=== PATIENT | female | born 1960 | race African-American/Black ===

== ENCOUNTER 2017-09-05 15:55 | Emergency (ER) | payer OTHER ==
[2017-09-05 16:11] VITALS: BMI 30.4
--- NOTE | 2017-09-05 17:22 | PDOC ---
Attending Attestation - Resident Resident Name: Cecilio Gordon - ED Attending Attestation I have performed the following: I have examined & evaluated the patient, The case was reviewed & discussed with the resident, I agree w/resident's findings & plan, Exceptions are as noted - Medical Decision Making Pt noted to have intermittent loose cough with coarse crackles noted on exam. Will treat for bronchitis. Will give transfusion for symptomatic anemia. CXR from [facility] reviewed (from the disk), no focal consolidation. <Viktoria Shirley - Last Filed: 09/05/17 19:25> - HPI HPI: 09/05/17 18:33 The patient is a 56 year old female, with a significant past medical history of anemia, multiple myeloma, and low blood pressure, who presents to the emergency department with worsening dyspnea on exertion with associated fatigue for the past 3 days. The patient reports a history of anemia, requiring blood transfusions in the past. She reports she feels paler than usual, and her current symptoms are similar to her previous anemic episodes. She denies any associated headache, dizziness, lightheadedness, fever, or chills. She denies any chest pain, diaphoresis, or palpitations. She denies any abdominal pain, nausea, vomiting, diarrhea, or constipation. She denies any dysuria, hematuria, frequency, or urgency. Patient reports she is currently visiting [place]. Allergies: Vancomycin, [Tegaderm] Past Surgical History: None reported Social History: Non smoker. No ETOH or recreational drug use. - Physicial Exam PE: 09/05/17 18:33 GENERAL: Awake, alert, and fully oriented, in no acute distress HEAD: No signs of trauma EYES: Conjuntival pallor. PERRLA, EOMI, sclera anicteric, conjunctiva clear ENT: Auricles normal inspection, hearing grossly normal, nares patent, oropharynx clear without exudates. Moist mucosa NECK: Normal ROM, supple, no lymphadenopathy, JVD, or masses LUNGS: Diffuse coarse crackles bilaterally. No wheezes HEART: Regular rate and rhythm, normal S1 and S2, no murmurs, rubs or gallops ABDOMEN: Soft, nontender, normoactive bowel sounds. No guarding, no rebound. No masses EXTREMITIES: Normal range of motion, no edema. No clubbing or cyanosis. No cords, erythema, or tenderness NEUROLOGICAL: Cranial nerves II through XII grossly intact. Normal speech, normal gait SKIN: Warm, Dry, normal turgor, no rashes or lesions noted. - Medical Decision Making 09/05/17 18:33 Documentation prepared by Catrina Richardson, acting as medical auditor for Viktoria Shirley MD. <Catrina Richardson - Last Filed: 09/05/17 19:27>
--- NOTE | 2017-09-05 17:27 | PDOC ---
History of Present Illness - General Chief Complaint: Shortness of Breath Stated Complaint: SHORTNESS OF BREATH Time Seen by Provider: 09/05/17 17:21 - History of Present Illness Initial Comments: 09/05/17 17:46 The patient is a 56 year old female with a history of Multiple Myeloma, Anemia, Low BP who presents for evaluation of SOB and fatigue. The patient reports a 3 day history of worsening dyspnea on exertion and fatigue prompting her presentation to the ED for evaluation. She notes that she has a history of anemia requiring blood transfusions in the past and states that she feels she appears paler than usual and her current symptoms are similar to her prior episodes of anemia. She denies any fevers, chills, chest pain, abdominal pain, nausea, vomiting, or changes with urination or bowel movements. 09/05/17 18:36 Past History - Past Medical History Allergies/Adverse Reactions: Allergies Allergy/AdvReac Type Severity Reaction Status Date / Time vancomycin Allergy Itching Verified 09/05/17 16:11 TEGADERM Allergy Uncoded 09/05/17 16:11 Home Medications: Ambulatory Orders Carfilzomib [Kyprolis] 69 mg IV WEEKLY 09/05/17 Cholecalciferol (Vitamin D3) [Vitamin D3 -] 400 unit PO DAILY 09/05/17 Cyclophosphamide Injection [Cytoxan] 586 mg IV WEEKLY 09/05/17 Eltrombopag Olamine [Promacta] 50 mg PO DAILY 09/05/17 Lorazepam [Ativan] 1 mg PO DAILY PRN 09/05/17 Midodrine HCl 10 mg PO BID 09/05/17 Morphine *Sr* [Ms Contin -] 15 mg PO Q12H 09/05/17 Morphine *Sr* [Ms Contin -] 30 mg PO Q12H 09/05/17 Ondansetron HCl [Zofran] 8 mg PO Q8H PRN 09/05/17 Pregabalin [Lyrica -] 150 mg PO BID 09/05/17 Sulfamethoxazole/Trimethoprim [Bactrim Ds -] 1 tab PO DAILY 09/05/17 Valacyclovir HCl [Valtrex -] 500 mg PO BID 09/05/17 Azithromycin [Zithromax 250mg Tablets -] 250 mg PO UTDICT #6 tab 09/06/17 Anemia: Yes Cancer: Yes (MULTIPLE MYELOMA) COPD: No HTN: No (LOW BP) - Suicide/Smoking/Psychosocial Hx Smoking History: Never smoked Hx Alcohol Use: No Drug/Substance Use Hx: No Substance Use Type: None Review of Systems - Review of Systems Comments:: 09/05/17 17:50 Constitutional: Fatigue. No fevers, chills, malaise HEENT: No Rhinorrhea, nasal congestion, visual changes Cardiovascular: No chest pain, syncope, palpitations, lightheadedness Respiratory: SOB. No Hemoptysis, Gastrointestinal: No Abdominal pain, Nausea, Vomiting, Constipation, Diarrhea, Melena Genitourinary: No Dysuria, Frequency, Urgency, Hesitancy, Hematuria, Flank pain Musculoskeletal: No Myalgia, arthralgia Skin: No rashes, bruising, pallor Neurologic: No Headache, Dizziness, Numbness, Weakness, or Tingling Psychiatric: No Hallucinations. No SI or HI *Physical Exam - Vital Signs Last Vital Signs Temp Pulse Resp BP Pulse Ox 98.1 F 69 20 134/79 98 09/05/17 16:07 09/05/17 16:07 09/05/17 16:07 09/05/17 16:07 09/05/17 16:07 - Physical Exam Comments: 09/05/17 17:50 General Appearance: Nourished. No Apparent Distress HEENT: EOMI, JOLEEN. No Pharyngeal Erythema, Tonsillar Exudate, Tonsillar Erythema Neck: No Cervical Lymphadenopathy Respiratory/Chest: Diffuse bilateral crackles auscultated on exam. No Rhonchi , Wheezing Cardiovascular: Regular Rhythm, Regular Rate. No Murmur, Gallops, Rubs Gastrointestinal/Abdominal: Normal Bowel Sounds, Soft. No Guarding, Rebound, Tenderness Musculoskeletal: No CVA Tenderness Extremity: Normal Capillary Refill Integumentary: Normal Color, Dry, Warm Neurologic: Fully Oriented, Alert, Normal Mood/Affect, Normal Response, ED Treatment Course - LABORATORY CBC & Chemistry Diagram: 09/05/17 18:03 09/05/17 18:03 Medical Decision Making - Medical Decision Making 09/05/17 17:51 The patient is a 56 year old female with a history of Multiple Myloma, Anemia, Low BP who presents for evaluation of SOB and fatigue. Differential includes but is not limited to: Symptomatic anemia, acs, infections metabolic derangement. Given the patient's physical exam and history, it is possible her current symptoms are due to anemia. We will obtain a cbc, cmp, troponin, type and screen, coags, ekg to evaluate further. We will continue to monitor and reassess. 09/05/17 18:39 CBC demonstrated a hbg of 8.4 consistent with symptomatic anemia. The rest of the patient's abnormal cbc lab values including low wbc and platelet count is consist with the patient's baseline. Given the patient's symptomatic anemia, we will transfuse the patient with 2 units of blood and treat the patient with azithromycin given her physical exam and concern for a developing pneumonia. 09/05/17 19:00 Patient signed out to the night team pending transfusion and reassessment. *DC/Admit/Observation/Transfer Diagnosis at time of Disposition: Multiple myeloma Qualifiers: Multiple myeloma remission status: unspecified Qualified Code(s): C90.00 - Multiple myeloma not having achieved remission Anemia Qualifiers: Anemia type: unspecified type Qualified Code(s): D64.9 - Anemia, unspecified - Discharge Dispostion Disposition: HOME Condition at time of disposition: Stable - Prescriptions Prescriptions: Azithromycin [Zithromax 250mg Tablets -] 250 mg PO UTDICT #6 tab - Referrals - Patient Instructions Printed Discharge Instructions: Anemia Additional Instructions: Please return to the ER if you have any signs or symptoms of chest pain, shortness of breath, uncontrollable fever, chills, nausea, vomiting, numbness, tingling, or weakness in any part of your body, changes in vision, or slurred speech. Please return to the ER if symptoms persist, worsen, or new symptoms arise. Please follow up with your primary care physician in 2-3 days. - Post Discharge Activity
[2017-09-05 18:14] LABS: BASO % 0.5 % (0-2.0); EOS % 3.2 % (0-4.5); HEMATOCRIT 24.5 % (32.4-45.2); HEMOGLOBIN 8.4 GM/dL (10.7-15.3); MCH 36.6 pg (25.7-33.7); MCHC 34.4 g/dl (32.0-36.0); MEAN CELL VOLUME 106.3 fl (80-96); MEAN PLT VOLUME 9.7 fl (7.5-11.1); MONO % 8.6 % (3.8-10.2); NEUT % 71.7 % (42.8-82.8); PLATELET COUNT 42 K/MM3 (134-434); RDW 17.5 % (11.6-15.6); WHITE BLOOD COUNT 2.1 K/mm3 (4.0-10.0)
[2017-09-05 18:23] LABS: ADD RBC MORPHOLOGY YES
[2017-09-05] MEDS ORDERED: AZITHROMYCIN 500 MG TABLET PO ONE (18:36)
[2017-09-05 18:42] LABS: INR 1.02 (0.82-1.09); PROTHROMBIN TIME (PATIENT) 11.5 SEC (9.98-11.88)
[2017-09-05] MEDS ORDERED: AZITHROMYCIN 250 MG TABLET ONE (18:47)
[2017-09-05 18:59] LABS: ANISOCYTOSIS 2+; PLATELET ESTIMATE DECREASED
--- NOTE | 2017-09-05 19:25 | PDOC ---
*Physical Exam - Vital Signs Last Vital Signs Temp Pulse Resp BP Pulse Ox 98 F 76 18 116/65 98 09/05/17 21:18 09/05/17 21:18 09/05/17 21:18 09/05/17 21:18 09/05/17 21:18 <Viktoria Shirley - Last Filed: 09/05/17 22:17> - Vital Signs Last Vital Signs Temp Pulse Resp BP Pulse Ox 98.1 F 63 18 134/79 99 09/05/17 16:07 09/05/17 18:08 09/05/17 18:08 09/05/17 16:07 09/05/17 18:08 <Edwardo Lemus - Last Filed: 09/06/17 01:18> ED Treatment Course - LABORATORY CBC & Chemistry Diagram: 09/05/17 18:03 09/05/17 18:03 - ADDITIONAL ORDERS Additional order review: Laboratory Results 09/05/17 09/05/17 09/05/17 19:14 18:03 18:03 PT with INR INR PTT (Actin FS) Sodium 144 Potassium 3.9 Chloride 111 H Carbon Dioxide 25 Anion Gap 8 BUN 17 Creatinine 0.9 Creat Clearance w eGFR > 60 Random Glucose 123 H Calcium 8.3 L Ferritin 2340.320 H Total Bilirubin 0.5 AST 24 ALT 26 Alkaline Phosphatase 110 LD Total 311 H Creatine Kinase 37 Troponin I 0.02 Total Protein 5.8 L Albumin 3.6 Blood Type B NEGATIVE Antibody Screen Crossmatch See Detail 09/05/17 09/05/17 18:03 17:27 PT with INR 11.50 INR 1.02 PTT (Actin FS) 54.0 H Sodium Potassium Chloride Carbon Dioxide Anion Gap BUN Creatinine Creat Clearance w eGFR Random Glucose Calcium Ferritin Total Bilirubin AST ALT Alkaline Phosphatase LD Total Creatine Kinase Troponin I Total Protein Albumin Blood Type B NEGATIVE Antibody Screen Negative Crossmatch 09/05/17 18:03 RBC 2.30 L MCV 106.3 H MCHC 34.4 RDW 17.5 H MPV 9.7 Neutrophils % 71.7 Lymphocytes % 16.0 Monocytes % 8.6 Eosinophils % 3.2 Basophils % 0.5 - Medications Given in the ED: ED Medications Discontinued Medications Generic Name Dose Route Start Last Admin Trade Name Freq PRN Reason Stop Dose Admin Acetaminophen 650 mg 09/05/17 20:05 09/05/17 20:14 Tylenol - PO 09/05/17 20:06 650 mg ONCE ONE Administration Azithromycin 500 mg 09/05/17 18:36 09/05/17 18:47 Azithromycin PO 09/05/17 18:37 500 mg ONCE ONE Administration Diphenhydramine HCl 25 mg 09/05/17 20:05 09/05/17 20:15 Benadryl Injection - IVPB 09/05/17 20:06 Not Given ONCE ONE Diphenhydramine HCl 25 mg 09/05/17 20:06 09/05/17 20:15 Benadryl - PO 09/05/17 20:07 25 mg ONCE ONE Administration <Viktoria Shirley - Last Filed: 09/05/17 22:17> - LABORATORY CBC & Chemistry Diagram: 09/05/17 18:03 09/05/17 18:03 - ADDITIONAL ORDERS Additional order review: Laboratory Results 09/05/17 09/05/17 09/05/17 18:03 18:03 17:27 PT with INR 11.50 INR 1.02 PTT (Actin FS) 54.0 H Blood Type B NEGATIVE B NEGATIVE Antibody Screen Negative Crossmatch See Detail 09/05/17 18:03 RBC 2.30 L MCV 106.3 H MCHC 34.4 RDW 17.5 H MPV 9.7 Neutrophils % 71.7 Lymphocytes % 16.0 Monocytes % 8.6 Eosinophils % 3.2 Basophils % 0.5 - Medications Given in the ED: ED Medications Discontinued Medications Generic Name Dose Route Start Last Admin Trade Name Jagdishq PRN Reason Stop Dose Admin Azithromycin 500 mg 09/05/17 18:36 09/05/17 18:47 Azithromycin PO 09/05/17 18:37 500 mg ONCE ONE Administration <Edwardo Lemus - Last Filed: 09/06/17 01:18> Medical Decision Making - Medical Decision Making 09/05/17 22:17 Pt unable to stay for admission, she is currently visiting from [place] while arranging her mother's . She has no acute source of bleeding, has known history of multiple myeloma with prior similar symptoms. <Viktoria Shirley - Last Filed: 09/05/17 22:17> - Medical Decision Making 09/05/17 19:24 Pt was signed out to me by Dr. Gordon, day team. The patient is a 56F with a PMH of anemia and multiple myeloma who presents to the ED complaining of dyspnea on exertion. Hgb found to be 8.4. 2 units ordered. Pending CMP and will be admitted for observation. 09/06/17 01:09 Will d/c patient home 1 hour after 2nd unit is finished to monitor for allergic reaction. 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 <Edwardo Lemus - Last Filed: 09/06/17 01:18> *DC/Admit/Observation/Transfer <Viktoria Shirley - Last Filed: 09/05/17 22:17> - Discharge Dispostion Admit: No <Edwardo Lemus - Last Filed: 09/06/17 01:18> Diagnosis at time of Disposition: Multiple myeloma Qualifiers: Multiple myeloma remission status: unspecified Qualified Code(s): C90.00 - Multiple myeloma not having achieved remission Anemia Qualifiers: Anemia type: unspecified type Qualified Code(s): D64.9 - Anemia, unspecified - Discharge Dispostion Disposition: HOME Condition at time of disposition: Stable - Patient Instructions Printed Discharge Instructions: Anemia Additional Instructions: Please return to the ER if you have any signs or symptoms of chest pain, shortness of breath, uncontrollable fever, chills, nausea, vomiting, numbness, tingling, or weakness in any part of your body, changes in vision, or slurred speech. Please return to the ER if symptoms persist, worsen, or new symptoms arise. Please follow up with your primary care physician in 2-3 days.
[2017-09-05 19:44] LABS: CHLORIDE 111 mmol/L (98-107); POTASSIUM 3.9 mmol/L (3.5-5.1); SODIUM 144 mmol/L (136-145)
[2017-09-05 20:05] LABS: ALBUMIN 3.6 g/dl (3.4-5.0); ALK PHOS 110 U/L (45-117); ANION GAP 8 (8-16); BILIRUBIN,TOTAL 0.5 mg/dL (0.2-1.0); BLOOD UREA NITROGEN 17 mg/dL (7-18); CALCIUM 8.3 mg/dL (8.5-10.1); CO2 25 mmol/L (21-32); CREATININE 0.9 mg/dL (0.55-1.02); GLUCOSE,RANDOM 123 mg/dL (74-106); SGOT/AST 24 U/L (15-37); SGPT/ALT 26 U/L (12-78); TOT PROT 5.8 g/dl (6.4-8.2)
[2017-09-05] MEDS ORDERED: ACETAMINOPHEN 325 MG TABLET (FP) PO ONE (20:05)
[2017-09-05] MEDS ORDERED: diphenhydrAMINE HCL 25 MG CAPSULE (FP) PO ONE ×2 (20:06→20:07)
[2017-09-05] MEDS ORDERED: ACETAMINOPHEN 325 MG TABLET (FP) ONE (20:06)
[2017-09-05 22:30] VITALS: TEMP 98.1
[2017-09-05 23:59] VITALS: BP 120/65; PULSE 68
--- NOTE | 2017-09-07 11:43 | EKG ---
Test Reason : Blood Pressure : / mmHG Vent. Rate : 058 BPM Atrial Rate : 058 BPM P-R Int : 166 ms QRS Dur : 080 ms QT Int : 424 ms P-R-T Axes : 043 -04 028 degrees QTc Int : 416 ms SINUS BRADYCARDIA OTHERWISE NORMAL ECG NO PREVIOUS ECGS AVAILABLE Confirmed by JUAN MCKEON MD ([id number]) on 09/07/2017 11:43:12 AM Referred By: Confirmed By:JUAN MCKEON MD
[2017-09-08 06:09] LABS: TRANSFERRIN 279 mg/dL (200-370)
== END 2017-09-06 01:35 | disposition home or self-care (01) ==
LOC: JER 15:55
DX: D64.9 Anemia, unspecified (principal); J40 Bronchitis, not specified as acute or chronic
CPT/HCPCS: 36415; 36430; 80053; 82550; 82728; 83010; 83540; 83550; 83615; 84466; 84484; 85025; 85044; 85610; 85730; 86850; 86900; 86901; 86922; 93005; 93010; 99285-25; P9038; P9058